=== PATIENT | female | born 1935 | race Caucasian/White ===

== ENCOUNTER 2017-04-30 07:12 | Observation (INO) | payer OTHER ==
[2017-04-24 11:05] LABS: BASOPHILS % 0.5 % (0.0-1.0); EOSINOPHILS # (AUTO) 0.1 (0.0-0.4); HEMATOCRIT 38.1 % (34.2-44.1); HEMOGLOBIN 12.4 g/dL (12.0-16.0); LYMPHOCYTES # (AUTO) 1.9 (1.0-3.2); LYMPHOCYTES % 29.4 % (18.0-39.1); MEAN CORPUSCULAR HEMOGLOBIN 31.4 pg (28-32); MEAN CORPUSCULAR HGB CONC 32.5 g/dL (31-35); MEAN CORPUSCULAR VOLUME 96.5 fL (81-99); MONOCYTES # (AUTO) 0.6 (0.2-0.8); MONOCYTES % 8.4 % (4.4-11.3); NEUTROPHILS # (AUTO) 3.9 (2.1-6.9); NEUTROPHILS % 59.2 % (38.7-80.0); PLATELET COUNT 378 x10e3/uL (140-360); RED BLOOD COUNT 3.95 x10e6/uL (3.6-5.1); RED CELL DISTRIBUTION WIDTH 13.2 % (11.7-14.4)
[2017-04-24 11:27] LABS: ANION GAP 15.5 mmol/L (8-16); CALCIUM 9.6 mg/dL (8.4-10.2); CREATININE, SERUM 1.39 mg/dL (0.57-1.11); POTASSIUM 4.5 mmol/L (3.5-5.1)
--- NOTE | 2017-04-24 11:37 | Diagnostic Imaging Report ---
PROCEDURE: X-RAY CHEST, TWO VIEWS COMPARISON: Chest x-ray dated 11/01/2014. INDICATIONS: PRE OPERATIVE CHEST X-RAY FOR MASTECTOMY FINDINGS: LUNGS: No consolidations or edema. PLEURA: No effusions or pneumothorax. HEART \T\ MEDIASTINUM: The heart is within normal size-limits. Calcification and tortuosity of the thoracic aorta. BONES \T\ SOFT TISSUES: No acute findings. Degenerative changes of the spine. CONCLUSION: No acute thoracic abnormality. Nathen Landeros D.O. Dictated by: Nathen Landeros D.O. on 04/24/2017 at 11:44 Electronically approved by: Nathen Landeros D.O. on 04/24/2017 at 11:44
[~2017-04-30] VITALS: Ht 162.6 cm; Wt 84.4 kg
[~2017-04-30 07:12] MED LIST: AMLODIPINE BESY10 MG PO; ASPIR 8181 MG PO; ATORVASTATIN CA20 MG PO; AZELASTINE137 MCG/0.; CLONIDINE HCL0.1 MG PO; DICLOFENAC SODI50 MG PO; FELODIPINE ER10 MG PO; FENOFIBRATE145 MG PO; GLIMEPIRIDE1 MG PO; HYDRALAZINE HCL25 MG PO; LEVOCETIRIZINE D5 MG PO; LISINOPRIL40 MG PO; LOVASTATIN40 MG PO; METFORMIN HCL500 MG PO; METOPROLOL TART50 MG PO; MISOPROSTOL200 MCG PO; OMEPRAZOLE40 MG PO; SUCRALFATE1 GM PO; TORSEMIDE20 MG PO; TYLENOL EXTRA500 MG
[2017-04-30] MEDS ORDERED: HYDROMORPHONE 1MG/1ML INJ IV PRN (10:30)
[2017-04-30] MEDS ORDERED: HYDROCODONE/APAP 7.5MG-325MG 1 EA TAB PO PRN (10:30)
[2017-04-30] MEDS ORDERED: ACETAMINOPHEN 1000 MG/100 ML IV PRN (10:30)
[2017-04-30] MEDS ORDERED: ONDANSETRON HCL INJ 2 MG/ML VIAL IV PRN (10:30)
[2017-04-30] MEDS ORDERED: FENTANYL CITRATE/PF 100MCG/2 ML INJ ONE ×2 (10:35→17:15)
[2017-04-30 11:37] VITALS: BP 184/83
[2017-04-30 11:40] VITALS: BP 184/83
[2017-04-30] MEDS: SODIUM CHLORIDE 0.9% 1000ML 1,000 ML IV SCH ×2 (12:20→23:47)
--- NOTE | 2017-04-30 13:46 | Operative Report ---
DATE OF PROCEDURE: April 30, 2017 PREOPERATIVE DIAGNOSIS: Left breast cancer. POSTOPERATIVE DIAGNOSIS: Left breast cancer. OPERATION PERFORMED: Left modified radical mastectomy. FINANCIAL SERVICES INTERN: Dr. Jose Kevin and CARMEN Helm. ANESTHESIA: General. COMPLICATIONS: None. ESTIMATED BLOOD LOSS: 50 mL. DESCRIPTION OF PROCEDURE: With the patient lying in bed in the supine position, under good general anesthesia, the left breast and axilla were prepped with Betadine solution and draped in the usual manner. A transverse incision was made to include the nipple-areolar complex. Flaps were then developed in all directions. The landmarks were medially the sternum, superiorly the clavicle, inferiorly the rectus fascia, and laterally the latissimus dorsi and the top of the axilla. The breast tissue was then taken off of the pectoralis major muscle from medial to lateral, and the lateral border of the pectoralis major muscle was then identified. The groove between the major and minor was dissected, and the fat pad was included in the specimen. The lateral border of the pectoralis minor muscle was then dissected, and the axilla was entered at the top. The axillary vein was identified and preserved. The long thoracic and thoracodorsal nerves were identified and preserved. The axillary branches of the axillary artery were then divided between 2-0 silk ties, and the axillary fat pad was then swept downward, preserving the nerves at all times. The entire specimen was removed without any difficulty and sent for pathological examination. The whole area was then thoroughly irrigated. Perfect hemostasis was ascertained. Two #10 flat Jose-Cazares drains were then left in the wound and brought out through separate stab wound incisions. One was placed in the pectoralis muscle, and the other one was placed in the axilla. The wound was then closed using interrupted sutures of 2-0 and 3-0 silk. A dressing was applied. The sponge, lap and needle count was correct. The patient tolerated the procedure well and returned to the recovery room in stable condition. Job#: [id number]
[2017-04-30 15:34] VITALS: BP 176/80
[2017-04-30] MEDS ORDERED: HYDRALAZINE HCL 100 MG TABLET PO SCH (17:00)
[2017-04-30] MEDS: HYDRALAZINE HCL 25 MG TAB PO SCH (17:02)
[2017-04-30] MEDS: METOPROLOL TARTRATE 50 MG TAB PO SCH (17:02)
[2017-04-30] MEDS: METFORMIN HCL 500 MG TAB PO SCH (17:02)
[2017-04-30] MEDS ORDERED: MIDAZOLAM HCL 2 MG/2 ML VIAL ONE (17:15)
[2017-04-30 19:00] VITALS: BP 167/73
[2017-04-30] MEDS ORDERED: PROPOFOL IV EMULSION 10 MG/ML 20 ML VIAL ONE (19:28)
[2017-04-30] MEDS ORDERED: DEXAMETHASONE SOD PHOS INJ 4 MG/ML VIAL ONE (19:28)
[2017-04-30] MEDS ORDERED: LIDOCAINE HCL 2% LOCAL INJ 5 ML SDV VIAL INJ ONE (19:28)
[2017-04-30] MEDS ORDERED: GLYCOPYRROLATE INJ 1MG/ 5 ML SYR ONE (19:28)
[2017-04-30] MEDS ORDERED: ONDANSETRON HCL INJ 2 MG/ML VIAL ONE (19:28)
[2017-04-30] MEDS ORDERED: ROCURONIUM BROMIDE 10 MG/ML 5ML VIAL ONE (19:28)
[2017-04-30] MEDS ORDERED: ACETAMINOPHEN 1000 MG/100 ML IV ONE (19:28)
[2017-04-30] MEDS ORDERED: KETOROLAC TROMETHAMINE 30 MG/ML VIAL ONE (19:28)
[2017-04-30] MEDS ORDERED: CLONIDINE HCL 0.2 MG TAB PO SCH (21:00)
[2017-04-30] MEDS ORDERED: ATORVASTATIN 40 MG TAB PO SCH (21:00)
[2017-05-01] VITALS: BP 149/63
[2017-05-01 04:30] VITALS: BP 149/68
[2017-05-01 08:00] VITALS: BP 174/70
[2017-05-01] MEDS ORDERED: AMLODIPINE BESYLATE 10 MG TAB PO SCH (09:00)
[2017-05-01] MEDS: HYDRALAZINE HCL 25 MG TAB PO SCH ×2 (09:16→14:30)
[2017-05-01] MEDS: METOPROLOL TARTRATE 50 MG TAB PO SCH ×2 (09:16→16:30)
[2017-05-01] MEDS: METFORMIN HCL 500 MG TAB PO SCH ×2 (09:16→16:30)
[2017-05-01 12:16] VITALS: BP 159/72
[2017-05-01] MEDS: SODIUM CHLORIDE 0.9% 1000ML 1,000 ML IV SCH (13:07)
[2017-05-01 15:33] VITALS: BP 184/81
[2017-05-01 19:30] VITALS: BP 193/84
[2017-05-01] MEDS ORDERED: [UNRECOGNIZED DRUG - OTHER] (19:50)
== END 2017-05-01 20:25 | disposition home or self-care (01) ==
LOC: OR 07:12 → IMCU 11:05
PROVIDERS: ADMIT Surgery; ATTEND Surgery
DX: C50.612 Malignant neoplasm of axillary tail of left female breast (principal); C77.3 Secondary and unspecified malignant neoplasm of axilla and upper limb lymph nodes; I10 Essential (primary) hypertension; E11.9 Type 2 diabetes mellitus without complications
CPT/HCPCS: 19307; 36415 ×3; 71020; 80048; 82948 ×2; 85025; 88309; 88342; 93005; G0378 ×2; J1100; J1170; J1885; J2001; J2250; J2405; J7030 ×2